=== PATIENT | male | born 1990 | race Caucasian/White ===

== ENCOUNTER 2021-12-13 07:02 | Emergency (ER) | payer SELFPAY ==
[~2021-12-13] VITALS: Ht 165.1 cm; Wt 127.0 kg
[~2021-12-13 07:02] MED LIST: ADDERALL 30 MG30 MG PO; BACTRIM DS TAB1 EACH PO; CEFDINIR PO; CYCLOBENZAPRINE10 MG PO; NEXIUM OTC PO; PANTOPRAZOLE SO40 MG PO; SUCRALFATE1 GM PO
[2021-12-13] MEDS ORDERED: KETOROLAC TROMETHAMINE 30 MG/ML VIAL IV STA (07:07)
[2021-12-13] MEDS ORDERED: ONDANSETRON HCL INJ 2MG/ML 2ML 2 MG/ML VIAL IV STA (07:07)
[2021-12-13] MEDS ORDERED: SODIUM CHLORIDE 0.9% 1000ML 1,000 ML IV ONE ×2 (07:15→10:00)
[2021-12-13 07:28] LABS: BASOPHILS # (AUTO) 0.1 (0.0-0.1); EOSINOPHILS # (AUTO) 0.3 (0.0-0.4); EOSINOPHILS % 2.4 % (0.0-6.0); HEMATOCRIT 42.2 % (38.2-49.6); HEMOGLOBIN 13.4 g/dL (14.0-18.0); LYMPHOCYTES # (AUTO) 3.5 (1.0-3.2); LYMPHOCYTES % 28.6 % (18.0-39.1); MEAN CORPUSCULAR HEMOGLOBIN 28.1 pg (28-32); MEAN CORPUSCULAR HGB CONC 31.8 g/dL (31-35); MEAN CORPUSCULAR VOLUME 88.5 fL (81-99); MONOCYTES # (AUTO) 1.2 (0.2-0.8); MONOCYTES % 9.6 % (4.4-11.3); PLATELET COUNT 352 x10e3/uL (140-360); RED BLOOD COUNT 4.77 x10e6/uL (4.3-5.7); RED CELL DISTRIBUTION WIDTH 14.7 % (11.7-14.4)
[2021-12-13 07:44] LABS: CLARITY,URINE TURBID (CLEAR); COLOR,URINE BROWN (YELLOW); LEUKOCYTE ESTERASE ,URINE TRACE (NEGATIVE); NITRITE,URINE NEGATIVE (NEGATIVE); PROTEIN,URINE DIPSTICK 2+ (NEGATIVE)
[2021-12-13 07:45] LABS: KETONES,URINE NEGATIVE (NEGATIVE); URINE UROBILINOGEN 1 mg/dL (0.2 - 1)
[2021-12-13 07:48] LABS: ALBUMIN 3.7 g/dL (3.5-5.0); ANION GAP 12.8 mmol/L (8-16); CALCIUM 8.9 mg/dL (8.4-10.2); CREATININE, SERUM 1.27 mg/dL (0.72-1.25); POTASSIUM 3.8 mmol/L (3.5-5.1)
[2021-12-13 08:00] LABS: RBC,URINE >50 /HPF (0-5)
[2021-12-13 08:01] LABS: BACTERIA,URINE MODERATE /HPF; EPITHELIAL CELLS,URINE FEW /LPF
[2021-12-13] MEDS ORDERED: IOPAMIDOL 370 MG/ML 100 ML INFUS..BTL INJ ONE (08:24)
[2021-12-13] MEDS ORDERED: ACETAMINOPHEN-1 EAC4 PO (08:58)
[2021-12-13] MEDS ORDERED: ONDANSETRON ODT4 MG PO (08:58)
[2021-12-13] MEDS ORDERED: LEVOFLOXACIN750 MG PO (08:58)
[2021-12-13] MEDS ORDERED: FLOMAX0.4 MG PO (08:58)
== END 2021-12-13 10:35 | disposition home or self-care (01) ==
LOC: ER 07:08
DX: R10.31 Right lower quadrant pain (principal); N20.2 Calculus of kidney with calculus of ureter; R11.2 Nausea with vomiting, unspecified; K76.9 Liver disease, unspecified
CPT/HCPCS: 36415; 74177; 80053; 81001; 83690; 85025; 99283; J1885; J2405; J7030; Q9967